=== PATIENT | female | born 1990 | race Caucasian/White ===

== ENCOUNTER 2016-08-14 13:49 | Emergency (ER) | payer BC ==
--- NOTE | 2016-08-14 14:12 | EDPHY ---
H & P Stated Complaint: SOB and "heaviness to left chest" since 8am - Personal History LMP (Females 10-55): IUD In Place Current Tetanus Diphtheria and Acellular Pertussis (TDAP): Yes - Medical/Surgical History Hx Asthma: No Hx Chronic Respiratory Disease: No Hx Diabetes: No Hx Cardiac Disease: No Hx Renal Disease: No Hx Cirrhosis: No Hx Alcoholism: No Hx HIV/AIDS: No Hx Splenectomy or Spleen Trauma: No Other PMH: PE's in 2012. - Social History Smoking Status: Never smoked Time Seen by Provider: 08/14/16 14:12 Constitutional: Initial Vital Signs Temperature (C) 36.6 C 08/14/16 13:56 Heart Rate 78 08/14/16 13:56 Respiratory Rate 16 08/14/16 13:56 Blood Pressure 120/74 08/14/16 13:56 O2 Sat (%) 98 08/14/16 13:56 O2 Delivery Mode Room Air Allergies/Adverse Reactions: No Allergies Allergy (Verified 09/19/12 11:29) Home Medications: Medication Instructions Recorded MIRENA 08/14/16 Medical Decision Making ED Course/Re-evaluation: CHIEF COMPLAINT: Dyspnea, chest pain HISTORY OF PRESENT ILLNESS: The patient is a 26 y/o female, with a history of one prior PE, presenting with chest pain and dyspnea onset while walking this morning. Her prior PE occurred while on control and presented with syncope. She had no preceding surgery or long periods of inactivity. She subsequently developed antiphospholipid antibody syndrome that later resolved. She is no longer on Coumadin. Today she noticed a diffuse "pinching" feeling in her chest while walking her dog and felt unable to take a deep breath. The pain is worse with inhalation or laughing. She denies chance of . REVIEW OF SYSTEMS: A 10 point review of systems was performed and is negative with the exception of the elements mentioned in the history of present illness. PHYSICAL EXAM: HR, BP, O2 Sat, RR. Temp noted General Appearance: Alert, well hydrated, appropriate, and non-toxic appearing. Head: Atraumatic without scalp tenderness or obvious injury Eyes: Pupils equal, round, reactive to light and accommodation, EOMI, no trauma , no injection. Ears: Clear bilaterally, no perforation, normal landmarks Nose: Atraumatic, no rhinorrhea, clear. Throat: There is no erythema or exudates, no lesions, normal tonsils, mucus membranes moist. Neck: Supple, nontender, no lymphadenopathy. Respiratory: No retractions, no distress, no wheezes, and no accessory muscle use. Lungs are clear to auscultation bilaterally. Cardiovascular: Regular rate and rhythm, no murmurs, rubs, or gallops. Good capillary refill all extremities. Gastrointestinal: Abdomen is soft, nontender, non-distended, no masses, no rebound, no guarding, no peritoneal signs. Musculoskeletal: Normal active ROM of all extremities, atraumatic. Neurological: Alert, appropriate, and interactive. The patient has normal DTRs and non-focal cranial nerves, motor, sensory, and cerebellar exam. Skin: No rashes, good turgor, no nodules on palpation. Past medical history: large PE 2012, antiphospholipid antibody syndrome - resolved since being off control; has Mirena IUD Past surgical history: Denies Family history: Noncontributory Social history: Prior [employer] student, friend at bedside DIFFERENTIAL DIAGNOSIS: The differential diagnosis for the patient's shortness of breath and hypoxemia included but was not limited to pneumonia, myocardial infarction, acute mountain sickness, high altitude pulmonary edema, congestive heart failure, and pulmonary embolus. MEDICAL DECISION MAKING: This is a 26 y/o female with a history of prior PE and antiphospholipid antibody syndrome who presents with a few-hour history of mild chest pain and dyspnea. Her exam is unremarkable. Plan for IV, labs including hypercoagulability panel, and CTA chest. 1500: Patient signed out to Dr. Coronado at shift change pending CTA results and lab results. (Richard Jewell) Other Provider: CT scan the patient's chest was reported to me by Radiology as demonstrating no pulmonary embolism. I discussed the CT results with the patient who was relieved. Area of discomfort is very well localized at the very inferior lateral left sternal border. Patient looks well. Not hypoxic or tachycardic. She feels comfortable being discharged with nonsteroidal anti-inflammatories. She will follow up with her primary care physician. Hypercoagulable panel is pending. (Griselda Coronado) - Data Points Laboratory Results: Laboratory Results 08/14/16 14:15 08/14/16 14:15 08/14/16 08/14/16 08/14/16 14:54 14:15 14:15 WBC RBC Hgb Hct MCV MCH MCHC RDW Plt Count MPV Neut % (Auto) Lymph % (Auto) Marin % (Auto) Eos % (Auto) Baso % (Auto) Nucleat RBC Rel Count Absolute Neuts (auto) Absolute Lymphs (auto) Absolute Monos (auto) Absolute Eos (auto) Absolute Basos (auto) Absolute Nucleated RBC Immature Gran % Immature Gran # PT 14.0 SEC SEC (12.0-15.0) INR 1.09 (0.83-1.16) APTT 27.5 SEC SEC (23.0-38.0) Fibrinogen 286 mg/dL mg/dL (214-456) D-Dimer < 0.27 ug/mLFEU ug/mLFEU (0.00-0.50) Protein C Activity Pending Protein S Activity Pending Antithrombin III Activ Pending Factor V Leiden Mutat Pending Factor V Leiden Interp Pending Fact V Leiden Review By Pending Sodium Potassium Chloride Carbon Dioxide Anion Gap BUN Creatinine Estimated GFR Glucose Calcium Beta HCG, Qual NEGATIVE Anti-Cardiolipin IgG Ab Pending Anti-Cardiolipin IgM Ab Pending 08/14/16 08/14/16 14:15 14:15 WBC 6.84 10^3/uL 10^3/uL (3.80-9.50) RBC 4.89 10^6/uL 10^6/uL (4.18-5.33) Hgb 16.1 g/dL g/dL (12.6-16.3) Hct 46.8 % % (38.0-47.0) MCV 95.7 fL fL (81.5-99.8) MCH 32.9 pg pg (27.9-34.1) MCHC 34.4 g/dL g/dL (32.4-36.7) RDW 11.9 % % (11.5-15.2) Plt Count 254 10^3/uL 10^3/uL (150-400) MPV 9.6 fL fL (8.7-11.7) Neut % (Auto) 62.0 % % (39.3-74.2) Lymph % (Auto) 31.1 % % (15.0-45.0) Marin % (Auto) 5.7 % % (4.5-13.0) Eos % (Auto) 0.4 % L % (0.6-7.6) Baso % (Auto) 0.7 % % (0.3-1.7) Nucleat RBC Rel Count 0.0 % % (0.0-0.2) Absolute Neuts (auto) 4.23 10^3/uL 10^3/uL (1.70-6.50) Absolute Lymphs (auto) 2.13 10^3/uL 10^3/uL (1.00-3.00) Absolute Monos (auto) 0.39 10^3/uL 10^3/uL (0.30-0.80) Absolute Eos (auto) 0.03 10^3/uL 10^3/uL (0.03-0.40) Absolute Basos (auto) 0.05 10^3/uL 10^3/uL (0.02-0.10) Absolute Nucleated RBC 0.00 10^3/uL 10^3/uL (0-0.01) Immature Gran % 0.1 % % (0.0-1.1) Immature Gran # 0.01 10^3/uL 10^3/uL (0.00-0.10) PT INR APTT Fibrinogen D-Dimer Protein C Activity Protein S Activity Antithrombin III Activ Factor V Leiden Mutat Factor V Leiden Interp Fact V Leiden Review By Sodium 141 mEq/L mEq/L (134-144) Potassium 4.1 mEq/L mEq/L (3.5-5.2) Chloride 105 mEq/L mEq/L (97-110) Carbon Dioxide 25 mEq/l mEq/l (22-31) Anion Gap 11 mEq/L mEq/L (8-16) BUN 20 mg/dL mg/dL (7-23) Creatinine 0.9 mg/dL mg/dL (0.6-1.0) Estimated GFR > 60 Glucose 95 mg/dL mg/dL (70-100) Calcium 10.1 mg/dL mg/dL (8.5-10.4) Beta HCG, Qual Anti-Cardiolipin IgG Ab Anti-Cardiolipin IgM Ab Medications Given: Discontinued Medications Ketorolac Tromethamine (Toradol) 15 mg IVP EDNOW ONE Stop: 08/14/16 15:38 Last Admin: 08/14/16 15:58 Dose: 15 mg Departure - Departure Disposition: Home, Routine, Self-Care Clinical Impression: Chest wall pain Condition: Good Instructions: Chest Pain (ED), Chest Wall Pain (ED) Additional Instructions: I recommend Ibuprofen (Motrin, Advil) or Naproxen Sodium (Aleve) for pain and anti-inflammatory effects. You may take either one, but do not take both. Your dose is: Ibuprofen 600 mg every 6-8 hours with food. OR Naproxen Sodium (Aleve) 220 mg every 12 hours. Please return to the emergency department or seek care urgently if your symptoms are worsening despite the above measures, if he develops shortness of breath, fevers, cough, palpitations, vomiting, or other concerns. Labs for hypercoagulable panel have been ordered. You may follow up with your primary care physician regarding those results. Referrals: Ana Paula hCen MD [Primary Care Provider] - As per Instructions Report Scribed for: Richard Jewell Report Scribed by: Myriam Guzman Date of Report: 08/14/16 Time of Report: 14:43
[2016-08-14 14:24] LABS: % IMMATURE GRANULYOCYTES 0.1 % (0.0-1.1); ABSOLUTE IMMATURE GRANULOCYTES 0.01 10^3/uL (0.00-0.10); ADD DIFF? NO; ADD MORPH? NO; ADD SCAN? NO; ATYPICAL LYMPHOCYTE FLAG 10 (0-99); FRAGMENT RBC FLAG 0 (0-99); HEMATOCRIT 46.8 % (38.0-47.0); HEMOGLOBIN 16.1 g/dL (12.6-16.3); LEFT SHIFT FLG 0 (0-99); LIPEMIA HEMOLYSIS FLAG 90 (0-99); MEAN CELL HEMOGLOBIN 32.9 pg (27.9-34.1); MEAN CELL HEMOGLOBIN CONCENTR. 34.4 g/dL (32.4-36.7); MEAN CELL VOLUME 95.7 fL (81.5-99.8); MEAN PLATELET VOLUME 9.6 fL (8.7-11.7); PLATELET CLUMPS FLAG 0 (0-99); PLATELET COUNT 254 10^3/uL (150-400); RED BLOOD CELL COUNT 4.89 10^6/uL (4.18-5.33); RED CELL DISTRIBUTION WIDTH 11.9 % (11.5-15.2)
[2016-08-14 14:44] LABS: ANION GAP 11 mEq/L (8-16); CALCIUM 10.1 mg/dL (8.5-10.4); CARBON DIOXIDE 25 mEq/l (22-31); CHLORIDE 105 mEq/L (97-110); CREATININE 0.9 mg/dL (0.6-1.0); GLOMERULAR FILTRATION RATE > 60; GLUCOSE 95 mg/dL (70-100); POTASSIUM 4.1 mEq/L (3.5-5.2); SODIUM 141 mEq/L (134-144)
[2016-08-14] MEDS ORDERED: IOPAMIDOL (ISOVUE-300) 100 ML BTL IV ONE (14:50)
[2016-08-14 14:55] LABS: INR 1.09 (0.83-1.16)
[2016-08-14 15:03] LABS: APTT 27.5 SEC (23.0-38.0)
[2016-08-14 15:08] LABS: FIBRINOGEN 286 mg/dL (214-456)
[2016-08-14] MEDS ORDERED: KETOROLAC 15 MG/1 ML SDV IVP ONE (15:37)
[2016-08-14 16:09] VITALS: BP 123/67; PULSE 70; RESP 15; TEMP 98.4; O2SAT 96
--- NOTE | 2016-08-15 03:01 | CPEKG ---
Heart Rate: 66 RR Interval: 909 P-R Interval: 132 QRSD Interval: 100 QT Interval: 380 QTC Interval: 399 P Lincoln: 31 QRS Lincoln: -16 T Wave Lincoln: 52 EKG Severity - OTHERWISE NORMAL ECG - EKG Impression: SINUS RHYTHM EKG Impression: BORDERLINE LEFT AXIS DEVIATION Electronically Signed By: Isma Jose 16-Aug-2016 12:02:37
[2016-08-15 13:30] LABS: PROTEIN C ACTIVITY 88 % (70 - 150)
[2016-08-16 12:15] LABS: PROTEIN S ACTIVITY 95 % (50 - 160)
[2016-08-17 09:55] LABS: INTERPRETATION See Comments
== END 2016-08-14 16:07 | disposition home or self-care (01) ==
DX: R07.89 Other chest pain (principal)
CPT/HCPCS: 81332-90; 81479-90; 85300-90; 85303-90; 85306-90; 86147-90; 96374; J1885; Q9967